=== PATIENT | female | born 1935 | race American Indian/Alaskan Native ===

== ENCOUNTER 2018-09-22 08:56 | Emergency (ER) | payer MEDICARE ==
[2018-09-22 08:56] VITALS: BMI 40.9
[2018-09-22 09:07] VITALS: TEMP 97.7
--- NOTE | 2018-09-22 09:22 | ED PDOC ---
Arrival/HPI - General Chief Complaint: High Blood Pressure Time Seen by Provider: 09/22/18 08:59 Historian: Patient, Family (daughter) - History of Present Illness Time/Duration: Prior to Arrival Symptom Course: Unchanged Associated Symptoms (Text): 09/22/18 09:16 Patient was in the operating room this morning for a total knee replacement and found to be hypertensive and directed to the emergency department. She does have a history of hypertension. She is asymptomatic other than her knee pain. No chest pain palpitations or dyspnea. No headache dizziness or lightheadedness. Her case was canceled and the patient was transported to the emergency department. Past Medical History - Infectious Disease Hx of Infectious Diseases: None - Reproductive Menopause: Yes - Cardiac Hx Hypertension: Yes - Neurological Hx Paralysis: No - Hematological/Oncological Hx Blood Transfusions: No - Musculoskeletal/Rheumatological Hx Musculoskeletal Disorders: Yes - Psychiatric Hx Substance Use: No - Surgical History Hx Cataract Extraction: Yes - Anesthesia Hx Anesthesia Reactions: No Hx Malignant Hyperthermia: No - Suicidal Assessment Feels Threatened In Home Enviroment: No Family/Social History - Physician Review Nursing Documentation Reviewed: Yes Family/Social History: Unknown Family HX Smoking Status: Never Smoked Hx Alcohol Use: No Hx Substance Use: No Allergies/Home Meds Allergies/Adverse Reactions: Allergies clonidine [From Catapres] Adverse Reaction (Verified 09/22/18 09:50) ANAPHYLAXIS Home Medications: Home Meds Medication Instructions Recorded Confirmed Aspirin [Ecotrin] 81 mg PO DAILY 08/25/18 09/22/18 Furosemide [Lasix] 40 mg PO DAILY 08/25/18 09/22/18 Gabapentin [Neurontin] 300 mg PO DAILY 08/25/18 09/22/18 Nabumetone [Relafen] 500 mg PO DAILY 08/25/18 09/22/18 Azilsartan Med/Chlorthalidone 1 tab PO DAILY 09/18/18 09/22/18 [Edarbyclor 40 mg-12.5 mg] Review of Systems - Physician Review All systems were reviewed & negative as marked: Yes - Review of Systems Constitutional: Normal Respiratory: Normal Cardiovascular: Normal Gastrointestinal: Normal Musculoskeletal: Joint Swelling Skin: Normal Neurological: Normal Physical Exam Vital Signs Temp Pulse Resp BP Pulse Ox 09/22/18 08:56 97.7 F 64 18 145/90 99 Temperature: Afebrile Blood Pressure: Normal Pulse: Regular Respiratory Rate: Normal Appearance: Positive for: Well-Appearing, Non-Toxic, Comfortable Pain Distress: None Mental Status: Positive for: Alert and Oriented X 3 - Systems Exam Head: Present: Atraumatic, Normocephalic Pupils: Present: PERRL Extroacular Muscles: Present: EOMI Conjunctiva: Present: Normal Mouth: Present: Moist Mucous Membranes Neck: Present: Normal Range of Motion Respiratory/Chest: Present: Clear to Auscultation, Good Air Exchange. No: Respiratory Distress, Accessory Muscle Use Cardiovascular: Present: Regular Rate and Rhythm, Normal S1, S2. No: Murmurs Abdomen: No: Tenderness, Distention, Peritoneal Signs Neurological: Present: GCS=15, CN II-XII Intact, Speech Normal, Motor Func Grossly Intact Skin: Present: Warm, Dry, Normal Color. No: Rashes Psychiatric: Present: Alert, Oriented x 3, Normal Insight, Normal Concentration Medical Decision Making ED Course and Treatment: 09/22/18 09:49 Daughter does not want the patient have clonidine. Therefore lisinopril has been ordered. All of her preop testing has been reviewed. No need for additional lab work at this time 09/22/18 11:06 Blood pressure is improved. 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 Discharge home accompanied by daughter. Her knee surgery and is rescheduled for 3 weeks according to the daughter. Disposition/Present on Arrival - Present on Arrival Any Indicators Present on Arrival: No History of DVT/PE: No History of Uncontrolled Diabetes: No Urinary Catheter: No History of Decub. Ulcer: No History Surgical Site Infection Following: None - Disposition Have Diagnosis and Disposition been Completed?: Yes Diagnosis: Hypertension Disposition: HOME/ ROUTINE Disposition Time: 11:06 Patient Plan: Discharge Patient Problems: Current Active Problems Problem Status Onset Osteoarthritis of right knee Acute Hypertension Chronic Condition: GOOD Discharge Instructions (ExitCare): High Blood Pressure in Adults Referrals: Patrice Obiren MD [Primary Care Provider] - Follow up with primary Forms: [employer] ([place])
[2018-09-22 11:43] VITALS: BP 165/73; PULSE 60; RESP 16; O2SAT 95
== END 2018-09-22 11:26 | disposition home or self-care (01) ==
LOC: ED 08:56
DX: I10 Essential (primary) hypertension (principal)